=== PATIENT | male | born 1985 | race Two or more races ===

== ENCOUNTER 2023-11-26 11:38 | Emergency (ER) | payer OTHER ==
[~2023-11-26] VITALS: Ht 175.3 cm; Wt 63.5 kg
[2023-11-26 13:16] VITALS: BP 100/57; PULSE 61; RESP 16; TEMP 97.7; O2SAT 99
[2023-11-26] MEDS ORDERED: METH-1181 PO (13:26)
[2023-11-26] MEDS ORDERED: IBUP-1454 PO (13:26)
== END 2023-11-26 13:30 | disposition home or self-care (01) ==
LOC: ER 11:38 → EDBD 11:38 → ER 13:30
DX: S29.011A Strain of muscle and tendon of front wall of thorax, initial encounter (principal); S60.222A Contusion of left hand, initial encounter; S00.83XA Contusion of other part of head, initial encounter; V43.52XA Car driver injured in collision with other type car in traffic accident, initial encounter; Y93.89 Activity, other specified; Y92.488 Other paved roadways as the place of occurrence of the external cause; Y99.8 Other external cause status
CPT/HCPCS: 71101